=== PATIENT | male | born 1970 | race Caucasian/White ===

== ENCOUNTER 2017-08-02 10:09 | Emergency (ER) | payer MEDICARE, MEDICAID ==
[2017-08-02] MEDS ORDERED: DOXYcycline IV* 100 MG VIAL IVPB ONE (10:51)
[2017-08-02] MEDS ORDERED: DOXYcycline CAP(*) 100 MG PO ONE (11:07)
[2017-08-02 11:48] VITALS: BP 146/84
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
--- NOTE | 2017-08-04 06:45 | PN ---
Progress Note - Progress Note Date of Service: 08/02/17 Note: Pt. started on Doxycycline in the ER 08/02/17 for buttocks wound. Preliminary wound culture today is growing S. aureus, strep agalactiae. Pending final wound culture. Continue doxy. at this time.
--- NOTE | 2017-08-05 09:27 | PN ---
Progress Note - Progress Note Date of Service: 08/02/17 Note: Wound culture final grew staph aureus positive strep agalactiae today and bacteroids thetaiotaomicron Sensitive to penicillin, and not sensitive to tetracycline He was initially placed on doxycycline Susceptibility testing not performed for doxycycline, however we will change to penicillin due to tetracycline resistance Patient was called at 9:30 AM on 08/05/17 Left message to call back
--- NOTE | 2017-08-08 08:31 | PN ---
Progress Note - Progress Note Date of Service: 08/02/17 Note: Called patient today to make aware of a medication change Patient has a scheduled appointment with Dr. Cartwright today Wound grew staph aureus positive and strep agalactiae These are sensitive to penicillin He was originally placed on doxycycline He will tile picker the penicillin today Nothing further at this time Charline Zimmerman PA-C
== END 2017-08-02 11:47 | disposition home or self-care (01) ==
LOC: ED 10:09
DX: T21.35XA Burn of third degree of buttock, initial encounter (principal); R50.9 Fever, unspecified; R11.10 Vomiting, unspecified; Z87.891 Personal history of nicotine dependence; X16.XXXA Contact with hot heating appliances, radiators and pipes, initial encounter; Y92.9 Unspecified place or not applicable; Z79.01 Long term (current) use of anticoagulants
CPT/HCPCS: 87070; 87076; 87077; 87186; 87205; 87640; 87641; 96365; 99282; A9270-GY

== ENCOUNTER 2018-06-05 20:39 | Emergency (ER) | payer OTHER ==
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
[2018-06-05] MEDS ORDERED: HYDROmorphone INJ* 0.5 MG/0.5 ML SYRINGE IM ONE (21:15)
[2018-06-05] MEDS ORDERED: Cyclobenzaprine TAB* 10 MG PO ONE (21:16)
--- NOTE | 2018-06-05 23:24 | ED ---
Back Pain - HPI Summary HPI Summary: The patient is a 47 year old male who is presenting to the [facility] with a chief complaint of back pain. He reports of falling back on a recliner which caused him to recline into a "U-shape." The patient was in this position for 15 minutes until he was removed from recliner. He states that he has had multiple back surgeries and complications. The patient is also wheelchair-bound and is unable to move or feel any sensation in his right leg. Patient denies urinary symptoms and incontinence. Currently, he is taking methadone and oxycodone from a pain clinic. The incidence was reported to have been 1 day ago at 1800 and the pain has not been subsided since then. Patient has history of blood clots and reports of a swollen left arm since two weeks ago. Patient also reports of wheezing and is not on any blood thinner. The pain is rated to be 10/10 in severity. The symptoms are aggravated by nothing and the symptoms are alleviated by nothing. - History of Current Complaint Chief Complaint: EDBackInjRusty Stated Complaint: BACK PAIN Time Seen by Provider: 06/05/18 20:55 Hx Obtained From: Patient, Family/Double Reamer Operator Onset/Duration: Sudden Onset Onset/Duration: Started Days Ago - 1 day ago at 1800 Timing: Constant Back Pain Location: Is Discrete @ - Lower back pain Pain Intensity: 10 Pain Scale Used: 0-10 Numeric Aggravating Symptom(s): Nothing Alleviating Symptom(s): Nothing Associated Signs And Symptoms: Positive: Other - Swollen left arm and back pain. Negative: Bladder Incontinence - Allergies/Home Medications Allergies/Adverse Reactions: Allergies Allergy/AdvReac Type Severity Reaction Status Date / Time latex Allergy Intermediate Rash And Verified 05/29/18 08:59 Itching tomato Allergy Intermediate Swelling Verified 05/29/18 08:59 morphine AdvReac Unknown Loses Verified 05/29/18 08:59 motor control adhesives Allergy Intermediate Rash And Uncoded 10/27/17 09:48 Itching PMH/Surg Hx/FS Hx/Imm Hx Endocrine/Hematology History: Reports: Hx Anticoagulant Therapy - WAS ON COUMADIN, BUT WAS D/C 12/2012, Hx Blood Transfusions, Hx Anemia Denies: Hx Blood Disorders, Hx Bone Marrow Disease, Hx Diabetes, Hx Systemic Lupus Erythematosus, Hx Sickle Cell Disease, Hx Thyroid Disease, Hx Unexplained Bleeding, Other Endocrine/Hematological Disorders Cardiovascular History: Reports: Hx Angina - ON LOPRESSOR, Hx Deep Vein Thrombosis, Hx Hypertension Denies: Hx Cardiac Arrest, Hx Cardiomegaly, Hx Congestive Heart Failure, Hx Coronary Artery Disease, Hx Embolism, Hx Hypercholesterolemia, Hx Myocardial Infarction, Hx Pacemaker/ICD, Hx Peripheral Vascular Disease, Hx Valvular Heart Disease, Other Cardiovascular Problems/Disorders Respiratory History: Reports: Hx Asthma, Hx Pneumonia, Hx Sleep Apnea - using BIPAP Denies: Hx Chronic Obstructive Pulmonary Disease (COPD) Comment Only: Other Respiratory Problems/Disorders - PNEUMONIA 2 YRS AGO GI History: Reports: Hx Ulcer - ABD WOUND INTATHECAL PUMP, Other GI Disorders - Infected abdominal wound History: Denies: Hx Renal Disease Musculoskeletal History: Reports: Hx Back Problems, Other Musculoskeletal History - CELLULITIS & CHRONIC RLQ ABD WOUND Denies: Hx Arthritis, Hx Bursitis, Hx Congenital Bone Abnormalities, Hx Fibromyalgia, Hx Gout, Hx Orthopedic Injury, Hx Osteoporosis, Hx Scoliosis, Hx Tendonitis Sensory History: Reports: Hx Contacts or Glasses Denies: Hx Hearing Aid Opthamlomology History: Reports: Hx Contacts or Glasses Neurological History: Reports: Hx Spinal Cord Injury - PARAPLEGIC LE/WHEELCHAIR BOUND Denies: Hx Dementia, Hx Developmental Delay, Hx Headaches, Hx Migraine, Hx Seizures, Hx Transient Ischemic Attacks (TIA), Other Neuro Impairments/Disorders Psychiatric History: Reports: Hx Depression - OK NOW Denies: Hx Anxiety, Hx Attention Deficit Hyperactivity Disorder, Hx Eating Disorder, Hx Panic Disorder, Hx Post Traumatic Stress Disorder, Hx Inpatient Treatment, Hx Community Mental Health Tx, Hx Schizophrenia, Hx Bipolar Disorder , Hx Suicide Attempt, Hx of Violent Episodes Against Others, Hx Substance Abuse , Other Psychiatric Issues/Disorders - Cancer History Hx Chemotherapy: No Hx Radiation Therapy: No Hx Palliative Cancer Treatment: No - Surgical History Surgery Procedure, Year, and Place: APPENDECTOMY 1989LAMINECTOMY L5-S1 1995SPINAL CORD STIMULATOR 2000INTRATHECAL PUMP 2007 & [place] 12/25/13ABD WOUND, [facility] [place] 01/11/13ABD WOUND, 04/10/13, [facility] @ [facility] [place] BY DR HAZEL/ SEEN BY WOUND CLINIC; abdominal wound grafting Hx Anesthesia Reactions: No - Immunization History Date of Influenza Vaccine: < 10years Infectious Disease History: No Infectious Disease History: Reports: Hx of Known/Suspected MRSA, 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 is unaware of his FMHx. - Social History Occupation: Disabled Lives: With Family Alcohol Use: None Substance Use Type: Reports: None Smoking Status (MU): Former Smoker Type: Cigarettes Amount Used/How Often: PACK A DAY Have You Smoked in the Last Year: No Review of Systems Constitutional: Negative Eyes: Negative ENT: Negative Cardiovascular: Negative Respiratory: Other - Wheezing Gastrointestinal: Negative Genitourinary: Other - Negative urinary symptoms Negative: incontinence Musculoskeletal: Other - Back pain Positive: Edema - Left Arm Skin: Negative Neurological: Negative Psychological: Normal All Other Systems Reviewed And Are Negative: Yes Physical Exam - Summary Physical Exam Summary: VITAL SIGNS: Reviewed. GENERAL: Patient is a Morbidly obese (MALE) who is lying comfortable in the stretcher. Patient is not in any acute respiratory distress. HEAD AND FACE: No signs of trauma. No ecchymosis, hematomas or skull depressions. No sinus tenderness. EYES: PERRLA, EOMI x 2, No injected conjunctiva, no nystagmus. EARS: Hearing grossly intact. Ear canals and tympanic membranes are within normal limits. MOUTH: Oropharynx within normal limits. NECK: Supple, trachea is midline, no adenopathy, no JVD, no carotid bruit, no c- spine tenderness, neck with full ROM. CHEST: Symmetric, no tenderness at palpation LUNGS: Clear to auscultation bilaterally. No wheezing or crackles. CVS: Regular rate and rhythm, S1 and S2 present, no murmurs or gallops appreciated. ABDOMEN: Soft, non-tender. No signs of distention. No rebound no guarding, and no masses palpated. Bowel sounds are normal. EXTREMITIES: Swollen on his left upper extremity for 2 weeks. Paralysis and sensory loss with mild atrophy of the right lower extremity. NEURO: Alert and oriented x 3. No acute neurological deficits. Speech is normal and follows commands. Sensory exam is essentially unremarkable SKIN: Dry and warm Back: Tenderness of the lumbar sacral spine Triage Information Reviewed: Yes Vital Signs On Initial Exam: Initial Vitals Temp Pulse Resp BP Pulse Ox 98.3 F 86 18 159/108 97 06/05/18 20:47 06/05/18 20:47 06/05/18 20:47 06/05/18 20:47 06/05/18 20:47 Vital Signs Reviewed: Yes Diagnostics - Vital Signs Vital Signs Temp Pulse Resp BP Pulse Ox 06/05/18 21:43 18 06/05/18 20:47 98.3 F 86 18 159/108 97 - Laboratory Lab Statement: Any lab studies that have been ordered have been reviewed, and results considered in the medical decision making process. - CT Lumbar Spine CT CT Interpretation Completed By: Radiologist Summary of CT Findings: Lumbar Spine CT reveals 1. No acute findings in the lumbar spine. 2. Partially visualized nonobstructive calyceal calculus in the lower left. kidney. 3. Other chronic findings, as above. The ED Physician has reviewed this radiology report. As per radiologist. - Ultrasound No standard instances Ultrasound Interpretation Completed By: Radiologist Summary of Ultrasound Findings: US reveals, as per radiologist, 1. No evidence of deep vein thrombosis. 2. Cephalic veins poorly visualized due to soft tissue swelling. The ED Physician has reviewed this radiology report. Back Pain Course/Dx - Course Course Of Treatment: The patient is a 47 year old male who is presenting to the [facility] with a chief complaint of lower back pain. The patient has history of chronic back pain due to previous surgeries and back complications. He recieved an US and a CT Lumbar Spine in the [facility]. We recommended follow up with the pain clinic and a follow up with their primary care physician within 1 to 2 days. The patient will be discharged home with a dx of low back pain. - Diagnoses Provider Diagnoses: Low back pain Discharge - Sign-Out/Discharge Documenting (check all that apply): Patient Departure - Discharge Home Patient Received Moderate/Deep Sedation with Procedure: No - Discharge Plan Condition: Stable Disposition: HOME Patient Education Materials: Low Back Strain (ED), Chronic Back Pain (DC) Referrals: Leann Soriano COMMUNICATIONS ADMINISTRATOR [Primary Care Provider] - Additional Instructions: RETURN TO THE EMERGENCY DEPARTMENT FOR CHANGING OR WORSENING SYMPTOMS. FOLLOW UP WITH Primary care Physician IN 1-2 DAYS and THE PAIN CLINIC WELL. - Attestation Statements Document Initiated by Scribe: Yes Documenting Scribe: Ajay Arteaga Provider For Whom Scribe is Documenting (Include Credential): Dr. Cece Navarro Scribe Attestation: Ajay Saravia, scribed for Dr. Cece Navarro on 06/06/18 at 0012. Status of Scribe Document: Ready
[2018-06-05 23:29] VITALS: BP 141/83
== END 2018-06-05 23:48 | disposition home or self-care (01) ==
LOC: ED 20:39
DX: M54.5 Low back pain (principal); E66.01 Morbid (severe) obesity due to excess calories; Z79.01 Long term (current) use of anticoagulants; Z87.891 Personal history of nicotine dependence
CPT/HCPCS: 72131; 96372; 99283; A9270-GY; J1170

== ENCOUNTER 2024-04-23 17:11 | Inpatient (IN) ==
[2024-04-23] MEDS ORDERED: Ondansetron 4 mg VIAL 2 MG/ML 2 ml VIAL ONE (17:27)
[2024-04-23] MEDS ORDERED: Midazolam 10 mg/10 ml VIAL 1 mg/ml 10 ml VIAL (10 mg) ONE (17:30)
[2024-04-23] MEDS: Midazolam 10 mg/10 ml VIAL 1 mg/ml 10 ml VIAL (10 mg) IV SLOW PU ONE (17:33)
[2024-04-23] MEDS: Midazolam 5 mg/5 ml VIAL 1 mg/ml 5 ml VIAL (5 mg) IV SLOW PU ONE (17:33)
[2024-04-23] MEDS ORDERED: Succinylcholine 200 mg VIAL 20 mg/ml 10 ml VIAL (200 mg) ONE (17:35)
[2024-04-23] MEDS ORDERED: Rocuronium 50 mg VIAL 10 mg/ml 5 ml VIAL (50 mg) ONE (17:35)
[2024-04-23 18:00] LABS: ABS Basophils 0.1 10^3/uL (0.0-0.1); ABS Eosinophils 0.1 10^3/uL (0.0-0.5); ABS Lymphocytes 2.4 10^3/uL (1.0-4.8); ABS Nucleated RBC 0.02 10^3/ul; Eosinophil % 0.7 %; Hematocrit 43.6 % (38-53); Hemoglobin 14.6 g/dL (13.2-16.3); Lymphocyte % 13.5 %; Mean Corpuscular Hemoglobin 29.2 pg (27-33); Mean Corpuscular Hgb Conc 33.6 g/dL (31-36); Mean Corpuscular Volume 87.1 fL (80-97); Mean Platelet Volume 9.1 fL (7.5-11.2); Nucleated Red Blood Cells % 0.1 %/100WBC (0.0-0.8); Platelet Count 249 10^3/uL (150-450); Red Blood Count 5.01 10^6/uL (4.06-5.63); Red Cell Distribution Width 14.6 % (12-17); White Blood Count 17.6 10^3/uL (3.6-10.2)
[2024-04-23] MEDS: Lactated Ringers 1000 ml BAG 1,000 ML IV ONE ×2 (18:02→21:48)
[2024-04-23 18:36] LABS: ALT 38 U/L (7-52); AST 44 U/L (13-39); Albumin 4.9 g/dL (3.5-5.7); Albumin/Globulin Ratio 1.6 (1-3); Alcohol, S < 13 mg/dL (<13); Alkaline Phosphatase 146 U/L (35-149); Anion Gap 18 mmol/L (2-16); Blood Urea Nitrogen 22 mg/dL (6-24); CO2 Carbon Dioxide 23 mmol/L (22-32); Chloride 101 mmol/L (101-111); Creatinine, Serum 1.92 mg/dL (0.67-1.17); Globulin 3.1 g/dL (2-4); Glucose 135 mg/dL (70-100); Potassium 3.5 mmol/L (3.5-5.0); Sodium 142 mmol/L (135-145); Total Bilirubin 0.7 mg/dL (0.2-1.0); eGFR CKD-EPI 40.6 (>60)
[2024-04-23 18:46] LABS: Urine Benzodiazepine Screen Presumptive Positive (None Detect); Urine Cannabinoids Screen None Detected (None Detect); Urine Opiates Screen Presumptive Positive (None Detect)
[2024-04-23] MEDS ORDERED: Midazolam 5 mg/ml concentrated 5 mg/ml 1 ml VIAL ONE (20:21)
[2024-04-23] MEDS ORDERED: Haloperidol 5 mg/ml SDV IV/IM 5 MG/ML AMP ONE (20:22)
[2024-04-23] MEDS: Haloperidol 5 mg/ml SDV IV/IM 5 MG/ML AMP IV SLOW PU ONE (20:35)
[2024-04-23] MEDS: cefTRIAXone 1 gm/50 mL D5W 1 GM/50 ML BAG IV ONE (20:43)
[2024-04-23 20:53] LABS: Urine Appearance Turbid; Urine Bilirubin Negative (Negative); Urine Blood 3+ (Negative); Urine Color Yellow; Urine Glucose Negative (Negative); Urine Ketones Negative (Negative); Urine Nitrite Negative (Negative); Urine Protein 2+ (>=100 mg/dL) (Negative); Urine Urobilinogen Negative (Negative)
[2024-04-23 20:56] LABS: Urine Amorphous Crystals Present /HPF (Absent); Urine Bacteria 1+ /HPF (Absent); Urine Red Blood Cell 3+(>10/hpf) /HPF (0-Trace); Urine Squamous Epithelial Cell Present /HPF (Absent); Urine White Blood Cell 3+(>20/hpf) /HPF (0-Trace)
[2024-04-24] MEDS: Lactated Ringers 1000 ml BAG 1,000 ML IV ONE (00:52)
[2024-04-24 04:28] LABS: Hemoglobin 12.6 g/dL (13.2-16.3); Mean Corpuscular Hemoglobin 29.7 pg (27-33); Mean Corpuscular Volume 87.3 fL (80-97); Platelet Count 115 10^3/uL (150-450); Red Blood Count 4.24 10^6/uL (4.06-5.63); Red Cell Distribution Width 14.9 % (12-17); White Blood Count 8.5 10^3/uL (3.6-10.2)
[2024-04-24 04:33] LABS: INR 1.23 (0.85-1.14)
[2024-04-24 04:55] LABS: Calcium 9.3 mg/dL (8.6-10.3); Creatinine, Serum 1.29 mg/dL (0.67-1.17); Potassium 3.9 mmol/L (3.5-5.0); eGFR CKD-EPI 65.5 (>60)
[2024-04-24 07:59] LABS: PCO2 Arterial 52 mmHg (35-45); PO2 Arterial 98 mmHg (80-100)
[2024-04-24 08:58] LABS: TSH Ultra Thyroid Stim Horm 0.72 mcIU/mL (0.34-5.60)
[2024-04-24 09:00] LABS: Free T4 0.88 ng/dL (0.61-1.12)
[2024-04-24 09:38] LABS: Magnesium 2.2 mg/dL (1.9-2.7)
[2024-04-24] MEDS: Mometasone/Formoter 100/5 MDI INH SCH (10:49)
[2024-04-24] MEDS: KCL 20 MEQ/100 ML IVPREMIX 20 MEQ/100 ML BAG IV ONE (11:30)
[2024-04-24] MEDS: Potassium Chlor 20 meq TAB.ER PO ONE ×2 (12:11→14:50)
[2024-04-24 12:45] LABS: Magnesium 2.1 mg/dL (1.9-2.7); Potassium 3.7 mmol/L (3.5-5.0)
[2024-04-24] MEDS: Lactated Ringers 1000 ml BAG 1,000 ML IV SCH (18:57)
[2024-04-24] MEDS: DULoxetine DR 60 mg CAP PO SCH (19:13)
[2024-04-24] MEDS: Enoxaparin 40 MG/0.4 ML SYR SUBCUT SCH (19:13)
[2024-04-24] MEDS: cefTRIAXone 1 gm/50 mL D5W 1 GM/50 ML BAG IV SCH (20:25)
[2024-04-25 04:36] LABS: ABS Eosinophils 0.1 10^3/uL (0.0-0.5); ABS Lymphocytes 1.5 10^3/uL (1.0-4.8); ABS Monocytes 0.5 10^3/uL (0.0-1.1); ABS Neutrophils 4.1 10^3/uL (1.5-7.6); Eosinophil % 2.3 %; Hematocrit 34.7 % (38-53); Hemoglobin 11.9 g/dL (13.2-16.3); Lymphocyte % 24.7 %; Mean Corpuscular Hemoglobin 29.6 pg (27-33); Mean Corpuscular Hgb Conc 34.2 g/dL (31-36); Mean Corpuscular Volume 86.7 fL (80-97); Mean Platelet Volume 8.7 fL (7.5-11.2); Platelet Count 113 10^3/uL (150-450); Red Cell Distribution Width 14.7 % (12-17); White Blood Count 6.3 10^3/uL (3.6-10.2)
[2024-04-25 05:28] LABS: Albumin 3.8 g/dL (3.5-5.7); Albumin/Globulin Ratio 1.6 (1-3); Calcium 8.7 mg/dL (8.6-10.3); Creatinine, Serum 0.7 mg/dL (0.67-1.17); Direct Bilirubin 0.1 mg/dL (0.03-0.18); Globulin 2.4 g/dL (2-4); Indirect Bilirubin 0.6 mg/dL (0.3-1.0); Magnesium 1.8 mg/dL (1.9-2.7); Total Bilirubin 0.7 mg/dL (0.2-1.0); Total Protein 6.2 g/dL (6.4-8.9); eGFR CKD-EPI 108.8 (>60)
[2024-04-25] MEDS: Magnesium Sulfate 2 gm BAG 2 GM/50 ML BAG IVPB ONE (11:05)
[2024-04-25] MEDS: HYDROmorphone 1 MG/1 ML SYRINGE IV SLOW PU PRN (14:37)
[2024-04-26 07:10] LABS: Calcium 8.8 mg/dL (8.6-10.3); Creatinine, Serum 0.66 mg/dL (0.67-1.17); Potassium 3.7 mmol/L (3.5-5.0); eGFR CKD-EPI 110.8 (>60)
[2024-04-26 07:33] LABS: Hematocrit 33.9 % (38-53); Hemoglobin 11.7 g/dL (13.2-16.3); Mean Corpuscular Hemoglobin 30.3 pg (27-33); Mean Corpuscular Hgb Conc 34.6 g/dL (31-36); Mean Corpuscular Volume 87.6 fL (80-97); Red Blood Count 3.87 10^6/uL (4.06-5.63); Red Cell Distribution Width 14.1 % (12-17); White Blood Count 4.4 10^3/uL (3.6-10.2)
[2024-04-26 08:07] LABS: ABS Eosinophils 0.1 10^3/uL (0.0-0.5); ABS Lymphocytes 1.2 10^3/uL (1.0-4.8); ABS Monocytes 0.3 10^3/uL (0.0-1.1); ABS Neutrophils 2.7 10^3/uL (1.5-7.6); Eosinophil % 2.1 %; Lymphocyte % 28.6 %; Mean Platelet Volume 9.2 fL (7.5-11.2); Platelet Count 90 10^3/uL (150-450)
[2024-04-26] MEDS: oxyCODONE SR 20 mg TAB PO SCH (20:39)
[2024-04-27 07:59] LABS: Hematocrit 34.6 % (38-53); Hemoglobin 11.6 g/dL (13.2-16.3); Mean Corpuscular Hemoglobin 29.5 pg (27-33); Mean Corpuscular Hgb Conc 33.6 g/dL (31-36); Mean Corpuscular Volume 87.7 fL (80-97); Red Blood Count 3.95 10^6/uL (4.06-5.63); Red Cell Distribution Width 14.5 % (12-17); White Blood Count 3.8 10^3/uL (3.6-10.2)
[2024-04-27 08:24] LABS: Creatinine, Serum 0.66 mg/dL (0.67-1.17); Potassium 3.8 mmol/L (3.5-5.0); eGFR CKD-EPI 110.8 (>60)
[2024-04-27 08:30] LABS: ABS Eosinophils 0.1 10^3/uL (0.0-0.5); ABS Lymphocytes 1.1 10^3/uL (1.0-4.8); ABS Monocytes 0.3 10^3/uL (0.0-1.1); ABS Neutrophils 2.3 10^3/uL (1.5-7.6); Eosinophil % 2.7 %; Lymphocyte % 29.1 %; Nucleated Red Blood Cells % 0.1 %/100WBC (0.0-0.8); Platelet Count 91 10^3/uL (150-450)
[2024-04-27] MEDS ORDERED: Magnesium Hydroxide LIQ 30 ML UDC PO PRN (10:42)
[2024-04-27] MEDS ORDERED: Polyethylene Glycol 3350 17 GM PACKET PO PRN (10:42)
[2024-04-27] MEDS ORDERED: Senna TAB 8.6 mg TAB PO PRN (10:42)
[2024-04-27] MEDS: Magnesium Hydroxide LIQ 30 ML UDC PO SCH (20:29)
[2024-04-28 06:33] LABS: ABS Eosinophils 0.2 10^3/uL (0.0-0.5); ABS Lymphocytes 1.4 10^3/uL (1.0-4.8); ABS Monocytes 0.3 10^3/uL (0.0-1.1); ABS Neutrophils 2.3 10^3/uL (1.5-7.6); Eosinophil % 3.8 %; Hematocrit 34.2 % (38-53); Hemoglobin 11.8 g/dL (13.2-16.3); Lymphocyte % 32.4 %; Mean Corpuscular Hgb Conc 34.4 g/dL (31-36); Mean Corpuscular Volume 87.2 fL (80-97); Mean Platelet Volume 8.9 fL (7.5-11.2); Platelet Count 86 10^3/uL (150-450); Red Blood Count 3.92 10^6/uL (4.06-5.63); Red Cell Distribution Width 14.5 % (12-17); White Blood Count 4.2 10^3/uL (3.6-10.2)
[2024-04-28] MEDS: oxyCODONE SR 20 mg TAB PO SCH (20:26)
[2024-04-28] MEDS: HYDROmorphone 1 MG/1 ML SYRINGE IV SLOW PU PRN (22:33)
[2024-04-30 05:41] LABS: Hematocrit 33.7 % (38-53); Hemoglobin 11.2 g/dL (13.2-16.3); Mean Corpuscular Hemoglobin 29.8 pg (27-33); Mean Corpuscular Hgb Conc 33.1 g/dL (31-36); Mean Corpuscular Volume 89.8 fL (80-97); Red Blood Count 3.76 10^6/uL (4.06-5.63); Red Cell Distribution Width 14.7 % (12-17); White Blood Count 3.8 10^3/uL (3.6-10.2)
[2024-04-30 06:19] LABS: ABS Eosinophils 0.2 10^3/uL (0.0-0.5); ABS Lymphocytes 1.3 10^3/uL (1.0-4.8); ABS Monocytes 0.3 10^3/uL (0.0-1.1); ABS Neutrophils 2.1 10^3/uL (1.5-7.6); ABS Nucleated RBC 0.01 10^3/ul; Eosinophil % 4.5 %; Lymphocyte % 34.1 %; Mean Platelet Volume 9.9 fL (7.5-11.2); Nucleated Red Blood Cells % 0.2 %/100WBC (0.0-0.8); Platelet Count 31 10^3/uL (150-450)
[2024-04-30 06:38] LABS: Anion Gap 8 mmol/L (2-16); Blood Urea Nitrogen 18 mg/dL (6-24); CO2 Carbon Dioxide 25 mmol/L (22-32); Calcium 8.9 mg/dL (8.6-10.3); Chloride 103 mmol/L (101-111); Creatinine, Serum 0.75 mg/dL (0.67-1.17); Glucose 94 mg/dL (70-100); Sodium 136 mmol/L (135-145); eGFR CKD-EPI 106.6 (>60)
[2024-04-30 08:16] LABS: Potassium, Whole Blood 6.3 mmol/L (3.4-4.5)
[2024-04-30 11:39] LABS: ABS Eosinophils 0.2 10^3/uL (0.0-0.5); ABS Lymphocytes 0.9 10^3/uL (1.0-4.8); ABS Monocytes 0.3 10^3/uL (0.0-1.1); ABS Neutrophils 2.9 10^3/uL (1.5-7.6); ABS Nucleated RBC 0.01 10^3/ul; Eosinophil % 3.7 %; Hemoglobin 12.1 g/dL (13.2-16.3); Lymphocyte % 20.6 %; Mean Corpuscular Hemoglobin 29.2 pg (27-33); Mean Corpuscular Hgb Conc 33.5 g/dL (31-36); Mean Corpuscular Volume 87.2 fL (80-97); Mean Platelet Volume 9.6 fL (7.5-11.2); Nucleated Red Blood Cells % 0.1 %/100WBC (0.0-0.8); Platelet Count 97 10^3/uL (150-450); Red Blood Count 4.13 10^6/uL (4.06-5.63); Red Cell Distribution Width 14.3 % (12-17); White Blood Count 4.2 10^3/uL (3.6-10.2)
[2024-04-30 11:50] LABS: Albumin 4.1 g/dL (3.5-5.7); Albumin/Globulin Ratio 1.7 (1-3); Calcium 9.5 mg/dL (8.6-10.3); Creatinine, Serum 0.78 mg/dL (0.67-1.17); Globulin 2.4 g/dL (2-4); Potassium 4.2 mmol/L (3.5-5.0); Total Bilirubin 0.6 mg/dL (0.2-1.0); Total Protein 6.5 g/dL (6.4-8.9); eGFR CKD-EPI 105.3 (>60)
[2024-04-30 14:22] VITALS: BP 143/80
== END 2024-04-30 16:15 | disposition home or self-care (01) | DRG 917 ==
LOC: ED 17:11 → EDHOLD 23:38 → ICU 04-24 00:48 → MED 04-26 01:05
PROVIDERS: ADMIT Internal Medicine; ATTEND Student in an Organized Health Care Education/Training Program